=== PATIENT | male | born 1955 | race Caucasian/White ===

== ENCOUNTER 2017-12-12 09:15 | Emergency (ER) | payer OTHER ==
[~2017-12-12] VITALS: Ht 401.3 cm; Wt 59.0 kg
[2017-12-12] MEDS ORDERED: SODIUM CHLORIDE 0.9% 1,000 ML IV ONE (09:54)
[2017-12-12] MEDS ORDERED: BUPRTAB PO (09:56)
[2017-12-12] MEDS ORDERED: MEX150C PO (09:56)
[2017-12-12] MEDS ORDERED: SIMV-13 PO (09:56)
[2017-12-12] MEDS ORDERED: CARV25TA55 PO (09:56)
[2017-12-12] MEDS ORDERED: ASPI-231 PO (09:56)
[2017-12-12] MEDS ORDERED: POTA10TA51 PO (09:56)
[2017-12-12] MEDS ORDERED: LOSA25TA40 PO (09:56)
[2017-12-12] MEDS ORDERED: TRAM50TA2 PO (09:56)
[2017-12-12] MEDS ORDERED: PANT40TA2 PO (09:56)
[2017-12-12 10:23] LABS: Basophils # (auto) 0 uL; Basophils % (auto) 0.5 % (0.0-2.0); Eosinophils # (auto) 0.1 uL; Eosinophils % (auto) 0.8 % (0.0-7.0); Hematocrit 44.8 % (41.0-53.0); Hemoglobin 15.3 g/dL (13.5-17.5); Lymphocytes # (auto) 1.8 uL; Lymphocytes % (auto) 24.1 % (10.0-50.0); Mean Corpuscular Hemoglobin 31.7 pg (28.0-32.0); Mean Corpuscular Hgb Conc. 34.1 g/dL (32.0-36.0); Mean Corpuscular Volume 92.7 fL (80.0-100.0); Monocytes # (auto) 0.7 uL; Monocytes % (auto) 9.1 % (0.0-12.0); Neutrophils # (auto) 4.8 uL; Neutrophils % (auto) 65.5 % (37.0-80.0); Platelet Count (auto) 171 10^3/uL (140-450); Red Blood Cells 4.83 10^6/uL (4.5-5.90); Red Cell Distribution Width 12.8 % (11.8-14.3); White Blood Cell 7.4 10^3/uL (4.4-10.8)
[2017-12-12 10:39] LABS: Alanine Aminotransferase 57 U/L (16-61); Albumin 3.8 g/dL (3.4-5.0); Anion Gap 7 (5-15); Aspartate Aminotransferase 22 U/L (15-37); BUN/Creatinine Ratio 9.9; Blood Urea Nitrogen 10 mg/dL (7-18); Calcium 8.3 mg/dL (8.5-10.1); Carbon Dioxide 29 mmol/L (21-32); Chloride 106 mmol/L (98-107); GFR African American 96 mL/min; GFR Non-African American 80 mL/min; Glucose 90 mg/dL (74-106); Magnesium 2.3 mg/dL (1.6-2.6); Potassium 4.5 mmol/L (3.5-5.1); Sodium 142 mmol/L (136-145)
[2017-12-12 10:42] LABS: INR 1.05 (0.9-1.15); Partial Thromboplastin Time 29.3 sec (23.78-33.04); Prothrombin Time 11.2 sec (9.27-12.13)
[2017-12-12 10:44] LABS: Alkaline Phosphatase 100 U/L (45-117); Bilirubin, Total 0.4 mg/dL (0.2-1.0); Total Protein 6.9 g/dL (6.4-8.2)
[2017-12-12 11:58] LABS: Urine Bacteria NONE SEEN /hpf (None Seen); Urine Blood Negative /uL (Negative); Urine Specific Gravity 1.004 (1.001-1.035); Urine WBC 1 /hpf (0 - 3)
[2017-12-12 13:12] VITALS: BP 109/73
== END 2017-12-12 15:04 | disposition home or self-care (01) ==
LOC: ER 09:15
DX: R00.2 Palpitations (principal); I10 Essential (primary) hypertension; Z95.1 Presence of aortocoronary bypass graft; Z95.0 Presence of cardiac pacemaker; Z91.041 Radiographic dye allergy status; Z45.02 Encounter for adjustment and management of automatic implantable cardiac defibrillator
CPT/HCPCS: 36415; 71046; 80053; 81001; 83735; 84484; 85025; 85610; 85730; 93005; 94761

== ENCOUNTER 2017-12-13 17:45 | Inpatient (IN) | payer OTHER ==
[~2017-12-13] VITALS: Ht 175.3 cm; Wt 60.5 kg
[~2017-12-13 17:45] MED LIST: ASPI-231 PO; BUPRTAB PO; CARV25TA55 PO; LOSA25TA40 PO; MEX150C PO; PANT40TA2 PO; POTA10TA51 PO; SIMV-13 PO; TRAM50TA2 PO
[2017-12-13] MEDS ORDERED: AMIODARONE HCL 150 MG in D5W 5% 100 ML IV ONE (18:00)
[2017-12-13] MEDS ORDERED: AMIODARONE HCL 900 MG in DEXTROSE 500 ML IV SCH (18:08)
[2017-12-13 19:51] LABS: Basophils # (auto) 0 uL; Basophils % (auto) 0.3 % (0.0-2.0); Eosinophils # (auto) 0.1 uL; Eosinophils % (auto) 0.9 % (0.0-7.0); Hematocrit 46.8 % (41.0-53.0); Hemoglobin 16.3 g/dL (13.5-17.5); Lymphocytes % (auto) 16.9 % (10.0-50.0); Mean Corpuscular Hemoglobin 32.8 pg (28.0-32.0); Mean Corpuscular Hgb Conc. 34.9 g/dL (32.0-36.0); Mean Corpuscular Volume 93.9 fL (80.0-100.0); Monocytes % (auto) 8.1 % (0.0-12.0); Neutrophils # (auto) 8.7 uL; Neutrophils % (auto) 73.8 % (37.0-80.0); Platelet Count (auto) 185 10^3/uL (140-450); Red Blood Cells 4.99 10^6/uL (4.5-5.90); Red Cell Distribution Width 13.2 % (11.8-14.3); White Blood Cell 11.8 10^3/uL (4.4-10.8)
[2017-12-13 20:05] LABS: INR 1.06 (0.9-1.15); Partial Thromboplastin Time 29.9 sec (23.78-33.04); Prothrombin Time 11.3 sec (9.27-12.13)
[2017-12-13 20:10] LABS: Alanine Aminotransferase 55 U/L (16-61); Albumin 4.2 g/dL (3.4-5.0); Alkaline Phosphatase 113 U/L (45-117); Anion Gap 2 (5-15); Aspartate Aminotransferase 19 U/L (15-37); BUN/Creatinine Ratio 9.4; Bilirubin, Total 0.5 mg/dL (0.2-1.0); Blood Urea Nitrogen 11 mg/dL (7-18); Calcium 8.6 mg/dL (8.5-10.1); Carbon Dioxide 29 mmol/L (21-32); Chloride 107 mmol/L (98-107); GFR African American 81 mL/min; GFR Non-African American 67 mL/min; Glucose 95 mg/dL (74-106); Magnesium 2.4 mg/dL (1.6-2.6); Potassium 4.1 mmol/L (3.5-5.1); Sodium 138 mmol/L (136-145); Total Protein 7.7 g/dL (6.4-8.2)
[2017-12-13] MEDS ORDERED: DOCUSATE SOD 100 MG CAP PO PRN (21:30)
[2017-12-13] MEDS ORDERED: TEMAZEPAM 15 MG CAP PO PRN (21:30)
[2017-12-13] MEDS ORDERED: ACETAMINOPHEN 325 MG TAB PO PRN (21:30)
[2017-12-13] MEDS ORDERED: MORPHINE SULF INJ 2 MG/ML SYRINGE 1ML IV PRN (21:30)
[2017-12-13] MEDS ORDERED: HYDROcodone-ACET 5/325MG TAB PO PRN (21:30)
[2017-12-13] MEDS ORDERED: ONDANSETRON HCL 4 MG/2 ML VIAL IV PRN (21:30)
[2017-12-13] MEDS ORDERED: NITROGLYCERIN 0.4 MG SL TAB SL PRN (21:30)
[2017-12-13] MEDS: ATORVASTATIN 20 MG TAB PO SCH (22:06)
[2017-12-13] MEDS: ENOXAPARIN SOD 40 MG/0.4 ML SYRINGE SC SCH (22:06)
[2017-12-13] MEDS: FAMOTIDINE 20 MG TAB PO SCH (22:06)
[2017-12-14 06:56] LABS: Basophils # (auto) 0 uL; Basophils % (auto) 0.4 % (0.0-2.0); Eosinophils # (auto) 0 uL; Eosinophils % (auto) 0.6 % (0.0-7.0); Hematocrit 44.8 % (41.0-53.0); Hemoglobin 15.3 g/dL (13.5-17.5); Lymphocytes # (auto) 2.1 uL; Lymphocytes % (auto) 28.5 % (10.0-50.0); Mean Corpuscular Hgb Conc. 34.1 g/dL (32.0-36.0); Mean Corpuscular Volume 93.8 fL (80.0-100.0); Monocytes # (auto) 0.6 uL; Monocytes % (auto) 7.9 % (0.0-12.0); Neutrophils # (auto) 4.7 uL; Neutrophils % (auto) 62.6 % (37.0-80.0); Nucleated Red Blood Cells % 0.1 %; Platelet Count (auto) 165 10^3/uL (140-450); Red Blood Cells 4.78 10^6/uL (4.5-5.90); Red Cell Distribution Width 13.2 % (11.8-14.3); White Blood Cell 7.5 10^3/uL (4.4-10.8)
[2017-12-14 07:14] LABS: Potassium 3.9 mmol/L (3.5-5.1)
[2017-12-14 07:19] LABS: Albumin 3.8 g/dL (3.4-5.0); BUN/Creatinine Ratio 9.4; Calcium 8.3 mg/dL (8.5-10.1)
[2017-12-14 07:29] LABS: Bilirubin, Total 0.6 mg/dL (0.2-1.0); Total Protein 6.6 g/dL (6.4-8.2)
[2017-12-14] MEDS: FAMOTIDINE 20 MG TAB PO SCH ×2 (09:47→21:55)
[2017-12-14] MEDS: LOSARTAN POTASSIUM 25 MG TAB PO SCH (09:47)
[2017-12-14] MEDS: ENOXAPARIN SOD 40 MG/0.4 ML SYRINGE SC SCH (09:47)
[2017-12-14] MEDS: ASPirin 81 mg TAB PO SCH (09:47)
[2017-12-14] MEDS ORDERED: LIDOCAINE 2%HCL (LOCAL ANESTH.) INJ 20ML MDV ONE (11:50)
[2017-12-14] MEDS ORDERED: IODIXANOL 320MG/ML 100ML BTL IV ONE ×2 (11:50→12:54)
[2017-12-14] MEDS ORDERED: methylPREDNISolone SOD SUCC 125 MG/2 ML VL ONE (12:32)
[2017-12-14] MEDS ORDERED: ANGIOMAX 250 MG VIAL IV ONE (12:32)
[2017-12-14] MEDS ORDERED: fentaNYL CITRATE 100 MCG/2 ML VL ONE (12:33)
[2017-12-14] MEDS ORDERED: diphenhdrAMINE HCL 50 MG/1 ML VL ONE (12:33)
[2017-12-14] MEDS ORDERED: SODIUM CHL 0.9% 0 ML ONE (12:33)
[2017-12-14] MEDS ORDERED: EPINEPHrine HCL 1 MG/10 ML SYRG ONE (12:33)
[2017-12-14] MEDS ORDERED: ATROPINE SULF 1 MG/10ml SYR ONE (12:33)
[2017-12-14] MEDS ORDERED: MIDAZOLAM HCL 1MG/1ML-2 ML VIAL ONE (12:33)
[2017-12-14] MEDS ORDERED: FAMOTIDINE (10MG/ML) 2ML VL IV ONE ×2 (12:45→12:49)
[2017-12-14] MEDS ORDERED: AMIODARONE HCL 900 MG in DEXTROSE 500 ML IV SCH ×2 (14:30→16:15)
[2017-12-14] MEDS ORDERED: AMIODARONE HCL 200 MG TAB PO ONE (16:00)
[2017-12-14 19:51] VITALS: BP 112/66
[2017-12-14 20:54] VITALS: BP 133/79
[2017-12-14] MEDS: ATORVASTATIN 20 MG TAB PO SCH (21:55)
[2017-12-14] MEDS: AMIODARONE HCL 200 MG TAB PO SCH (22:00)
[2017-12-14] MEDS: MEXILETINE HYDROCHLORIDE 150 MG CAP PO SCH (22:09)
[2017-12-15] VITALS: BP 96/55
[2017-12-15] MEDS: MEXILETINE HYDROCHLORIDE 150 MG CAP PO SCH ×2 (06:21→15:22)
[2017-12-15 08:00] VITALS: BP 88/43
[2017-12-15] MEDS: ASPirin 81 mg TAB PO SCH (09:55)
[2017-12-15] MEDS: LOSARTAN POTASSIUM 25 MG TAB PO SCH (09:58)
[2017-12-15] MEDS: AMIODARONE HCL 200 MG TAB PO SCH (10:07)
[2017-12-15] MEDS: FAMOTIDINE 20 MG TAB PO SCH (10:08)
[2017-12-15 12:00] VITALS: BP 110/42
[2017-12-15] MEDS ORDERED: AMI200T PO (15:42)
[2017-12-15 16:00] VITALS: BP 113/56
[2017-12-15 16:23] VITALS: BP 113/56
[2017-12-15 17:05] VITALS: BP 113/56
[2017-12-15] MEDS ORDERED: AMIODARONE HCL 200 MG TAB PO SCH (22:00)
== END 2017-12-15 17:55 | disposition home or self-care (01) | DRG 287 ==
LOC: ER 17:47 → TELE 17:48 → DOU IN ICU 12-14 18:19
PROVIDERS: ADMIT Nurse Practitioner; ATTEND Hospitalist
PROC: B2131ZZ Fluoroscopy of Multiple Coronary Artery Bypass Grafts using Low Osmolar Contrast (ICD-10-PCS; principal; 2017-12-14)
PROC: B2111ZZ Fluoroscopy of Multiple Coronary Arteries using Low Osmolar Contrast (ICD-10-PCS; 2017-12-14)
PROC: 4A023N7 Measurement of Cardiac Sampling and Pressure, Left Heart, Percutaneous Approach (ICD-10-PCS; 2017-12-14)
PROC: B41F1ZZ Fluoroscopy of Right Lower Extremity Arteries using Low Osmolar Contrast (ICD-10-PCS; 2017-12-14)
PROC: B2181ZZ Fluoroscopy of Left Internal Mammary Bypass Graft using Low Osmolar Contrast (ICD-10-PCS; 2017-12-14)
DX: T82.198A Other mechanical complication of other cardiac electronic device, initial encounter (principal); I47.2 Ventricular tachycardia; I25.810 Atherosclerosis of coronary artery bypass graft(s) without angina pectoris; Z45.02 Encounter for adjustment and management of automatic implantable cardiac defibrillator; I25.5 Ischemic cardiomyopathy; F12.90 Cannabis use, unspecified, uncomplicated; F17.200 Nicotine dependence, unspecified, uncomplicated; I11.0 Hypertensive heart disease with heart failure; I25.2 Old myocardial infarction; I50.9 Heart failure, unspecified; I25.82 Chronic total occlusion of coronary artery; Z82.49 Family history of ischemic heart disease and other diseases of the circulatory system; Z95.1 Presence of aortocoronary bypass graft; Z95.810 Presence of automatic (implantable) cardiac defibrillator; Z91.041 Radiographic dye allergy status
CPT/HCPCS: 36415; 71045; 75710; 80053; 83735; 83880; 84484; 85025; 85610; 85730; 87081; 93459; 94761; 96372; 96374; 99152; 99291; A6257; J2250; J3490; J7060; Q9967

== ENCOUNTER 2017-12-19 14:51 | Emergency (ER) | payer OTHER ==
[~2017-12-19] VITALS: Ht 172.7 cm; Wt 59.0 kg
[~2017-12-19 14:51] MED LIST changes: +AMI200T PO
[2017-12-19 15:40] LABS: Basophils # (auto) 0.1 uL; Basophils % (auto) 0.5 % (0.0-2.0); Eosinophils # (auto) 0.1 uL; Eosinophils % (auto) 0.9 % (0.0-7.0); Hematocrit 42.6 % (41.0-53.0); Hemoglobin 14.9 g/dL (13.5-17.5); Lymphocytes # (auto) 2.6 uL; Mean Corpuscular Hemoglobin 32.2 pg (28.0-32.0); Mean Corpuscular Hgb Conc. 34.9 g/dL (32.0-36.0); Mean Corpuscular Volume 92.3 fL (80.0-100.0); Monocytes % (auto) 9.8 % (0.0-12.0); Neutrophils # (auto) 6.3 uL; Neutrophils % (auto) 62.8 % (37.0-80.0); Platelet Count (auto) 176 10^3/uL (140-450); Red Blood Cells 4.61 10^6/uL (4.5-5.90); Red Cell Distribution Width 13.1 % (11.8-14.3)
[2017-12-19 15:59] LABS: Alanine Aminotransferase 49 U/L (16-61); Albumin 3.9 g/dL (3.4-5.0); Alkaline Phosphatase 102 U/L (45-117); Anion Gap 9 (5-15); Aspartate Aminotransferase 30 U/L (15-37); BUN/Creatinine Ratio 10.4; Bilirubin, Total 0.5 mg/dL (0.2-1.0); Blood Urea Nitrogen 11 mg/dL (7-18); Calcium 8.3 mg/dL (8.5-10.1); Carbon Dioxide 25 mmol/L (21-32); Chloride 102 mmol/L (98-107); GFR African American 91 mL/min; GFR Non-African American 75 mL/min; Glucose 100 mg/dL (74-106); Magnesium 2.4 mg/dL (1.6-2.6); Potassium 3.8 mmol/L (3.5-5.1); Sodium 136 mmol/L (136-145); Total Protein 6.9 g/dL (6.4-8.2)
[2017-12-19 18:11] LABS: Urine WBC None Seen /hpf (0 - 3)
[2017-12-19] MEDS ORDERED: SODIUM CHLORIDE 0.9% 500 ML IV ONE (18:30)
[2017-12-19 18:56] LABS: Urine Bacteria NONE SEEN /hpf (None Seen); Urine Blood Negative /uL (Negative); Urine Specific Gravity 1.002 (1.001-1.035)
[2017-12-19 19:25] VITALS: BP 115/62
== END 2017-12-19 21:17 | disposition home or self-care (01) ==
LOC: ER 14:53
DX: F41.9 Anxiety disorder, unspecified (principal); R51 Headache; I11.0 Hypertensive heart disease with heart failure; I50.9 Heart failure, unspecified; I25.2 Old myocardial infarction; Z95.1 Presence of aortocoronary bypass graft
CPT/HCPCS: 36415; 71046; 80053; 81001; 83735; 84484; 85025; 93005; 99285; J7030

== ENCOUNTER 2022-01-30 17:42 | Emergency (ER) | payer OTHER ==
[~2022-01-30] VITALS: Ht 175.3 cm; Wt 81.8 kg
[~2022-01-30 17:42] MED LIST changes: -AMI200T PO; +AMIO200T4 PO; -ASPI-231 PO; +ASPI1TAB20 PO; +LOSA25TA38 PO; -LOSA25TA40 PO
[2022-01-30] MEDS ORDERED: HYDROmorphone HCL 2 MG/ML VL/or syr IV ONE ×2 (18:15→20:30)
[2022-01-30] MEDS ORDERED: ONDANSETRON HCL 4 MG/2 ML VIAL IV ONE (18:15)
[2022-01-30 19:13] LABS: Basophils # (auto) 0 10 ^3/uL (0-0.2); Basophils % (auto) 0.3 % (0.0-2.0); Eosinophils # (auto) 0 10 ^3/uL (0-0.8); Eosinophils % (auto) 0.1 % (0.0-7.0); Hematocrit 42.2 % (41.0-53.0); Hemoglobin 14.7 g/dL (13.5-17.5); Lymphocytes % (auto) 6.1 % (10.0-50.0); Mean Corpuscular Hgb Conc. 34.8 g/dL (32.0-36.0); Mean Corpuscular Volume 94.9 fL (80.0-100.0); Monocytes % (auto) 5.7 % (0.0-12.0); Neutrophils # (auto) 14.9 10 ^3/uL (1.6-8.6); Neutrophils % (auto) 87.8 % (37.0-80.0); Red Blood Cells 4.45 10^6/uL (4.5-5.90); Red Cell Distribution Width 13.1 % (11.8-14.3); White Blood Cell 16.9 10^3/uL (4.4-10.8)
[2022-01-30 19:25] LABS: Anion Gap 6 (5-15); Blood Alcohol < 3.0 mg/dL (0-5); Blood Urea Nitrogen 15 mg/dL (7-18); Calcium 9.1 mg/dL (8.5-10.1); Carbon Dioxide 27 mmol/L (21-32); Chloride 107 mmol/L (98-107); Glucose 127 mg/dL (74-106); Lipase 133 U/L (73-393); Potassium 4.3 mmol/L (3.5-5.1); Sodium 140 mmol/L (136-145)
[2022-01-30 19:27] LABS: Alanine Aminotransferase 31 U/L (16-61); Alkaline Phosphatase 87 U/L (45-117); Aspartate Aminotransferase 21 U/L (15-37); BUN/Creatinine Ratio 13.8; Bilirubin, Total 0.8 mg/dL (0.2-1.0); GFR African American 87 mL/min; GFR Non-African American 72 mL/min; Total Protein 6.8 g/dL (6.4-8.2)
[2022-01-31] MEDS ORDERED: NAP500T PO ×2 (00:05→00:42)
[2022-01-31] MEDS ORDERED: HYDROmorphone HCL 2 MG/ML VL/or syr IV ONE (00:30)
[2022-01-31 00:35] VITALS: BP 115/74
[2022-01-31] MEDS ORDERED: TETANUS-DIPTH-ACEL PERTUSSIS 0.5ML SYR Tdap IM ONE (01:15)
== END 2022-01-31 01:23 | disposition home or self-care (01) ==
LOC: ER 17:42
DX: S42.001A Fracture of unspecified part of right clavicle, initial encounter for closed fracture (principal); I11.0 Hypertensive heart disease with heart failure; I50.9 Heart failure, unspecified; I25.2 Old myocardial infarction; F12.10 Cannabis abuse, uncomplicated; W22.8XXA Striking against or struck by other objects, initial encounter; Y93.89 Activity, other specified; Y92.89 Other specified places as the place of occurrence of the external cause; Y99.8 Other external cause status
CPT/HCPCS: 36415; 70450; 71045; 71250; 72125; 74176; 80053; 80320; 83690; 83880; 84484; 85025; 90471; 90715; 93005; 96374; 96375; 96376; 99285; J1170; J2405

== ENCOUNTER 2022-08-17 01:14 | Inpatient (IN) | payer OTHER ==
[~2022-08-17] VITALS: Ht 175.3 cm; Wt 82.7 kg
[~2022-08-17 01:14] MED LIST changes: +NAP500T PO
[2022-08-17 01:53] LABS: Basophils # (auto) 0 10 ^3/uL (0-0.2); Basophils % (auto) 0.3 % (0.0-2.0); Eosinophils # (auto) 0 10 ^3/uL (0-0.8); Hematocrit 47.6 % (41.0-53.0); Hemoglobin 16.3 g/dL (13.5-17.5); Lymphocytes % (auto) 6.3 % (10.0-50.0); Mean Corpuscular Hemoglobin 33.3 pg (28.0-32.0); Mean Corpuscular Hgb Conc. 34.2 g/dL (32.0-36.0); Mean Corpuscular Volume 97.4 fL (80.0-100.0); Monocytes # (auto) 0.8 10 ^3/uL (0-1.3); Monocytes % (auto) 5.4 % (0.0-12.0); Neutrophils # (auto) 13.3 10 ^3/uL (1.6-8.6); Red Blood Cells 4.89 10^6/uL (4.5-5.90); Red Cell Distribution Width 13.5 % (11.8-14.3); White Blood Cell 15.2 10^3/uL (4.4-10.8)
[2022-08-17 02:08] LABS: INR 1.02 (0.9-1.15); Partial Thromboplastin Time 30.5 sec (24.6-33.4)
[2022-08-17 02:14] LABS: BUN/Creatinine Ratio 11.9 (10.0-20.0); Calcium 8.8 mg/dL (8.5-10.1); Potassium 4.1 mmol/L (3.5-5.1)
[2022-08-17 02:17] LABS: Bilirubin, Total 0.9 mg/dL (0.2-1.0); Total Protein 7.6 g/dL (6.4-8.2)
[2022-08-17] MEDS ORDERED: ONDANSETRON HCL 4 MG/2 ML VIAL IV PRN (03:45)
[2022-08-17] MEDS: MORPHINE SULFATE 4 MG/ML SYR/VIAL IV PRN ×3 (03:51→13:13)
[2022-08-17] MEDS ORDERED: MORPHINE SULFATE 4 MG/ML SYR/VIAL IV ONE (05:30)
[2022-08-17] MEDS ORDERED: MORPHINE SULFATE INJ 2 MG/ml SYRG IV PRN (07:15)
[2022-08-17] MEDS ORDERED: ACETAMINOPHEN 325 MG TAB PO PRN (07:15)
[2022-08-17] MEDS ORDERED: NITROGLYCERIN 0.4 MG SL TAB SL PRN (07:15)
[2022-08-17] MEDS: ONDANSETRON HCL 4 MG/2 ML VIAL IV PRN ×2 (08:24→17:03)
[2022-08-17] MEDS ORDERED: diphenhdrAMINE HCL 50 MG/1 ML VL ONE (09:32)
[2022-08-17] MEDS ORDERED: fentaNYL CITRATE 100 MCG/2 ML VL ONE (09:32)
[2022-08-17] MEDS ORDERED: MIDAZOLAM HCL 2MG/2ML 2ml VIAL (1mg/ml) ONE (09:32)
[2022-08-17] MEDS: FUROSEMIDE 20 MG TAB PO SCH (10:27)
[2022-08-17] MEDS: AMIODARONE HCL 200 MG TAB PO SCH ×2 (10:27→20:54)
[2022-08-17] MEDS: CARVEDILOL 12.5 MG TAB PO SCH ×2 (10:28→20:54)
[2022-08-17] MEDS: LOSARTAN POTASSIUM 25 MG TAB PO SCH (10:29)
[2022-08-17] MEDS: ENOXAPARIN SOD 40 MG/0.4 ML SYRINGE SC SCH (10:29)
[2022-08-17] MEDS: PANTOPRAZOLE 40 MG TAB PO SCH (10:29)
[2022-08-17] MEDS: ASPirin 81 mg TAB PO SCH (10:31)
[2022-08-17 11:45] LABS: Urine Bacteria NONE SEEN /hpf (None Seen); Urine Blood Negative /uL (Negative); Urine Mucus FEW (None Seen); Urine Specific Gravity 1.028 (1.001-1.035); Urine WBC 1 /hpf (0 - 3)
[2022-08-17 15:45] VITALS: BP 138/75
[2022-08-17 16:00] VITALS: BP 132/80
[2022-08-17] MEDS: HYDROmorphone HCL 2 MG/ML VL/or syr IV PRN ×2 (17:02→20:55)
[2022-08-17 22:00] VITALS: BP 134/82
[2022-08-17] MEDS ORDERED: ATORVASTATIN 20 MG TAB PO SCH (22:00)
[2022-08-18 05:00] VITALS: BP 107/50
[2022-08-18] MEDS: HYDROmorphone HCL 2 MG/ML VL/or syr IV PRN (05:28)
[2022-08-18 06:30] LABS: BUN/Creatinine Ratio 10.3 (10.0-20.0); Calcium 8.7 mg/dL (8.5-10.1); Potassium 4.1 mmol/L (3.5-5.1)
[2022-08-18 09:00] VITALS: BP 99/45
[2022-08-18] MEDS: FUROSEMIDE 20 MG TAB PO SCH (10:42)
[2022-08-18] MEDS: ASPirin 81 mg TAB PO SCH (10:42)
[2022-08-18] MEDS: CARVEDILOL 12.5 MG TAB PO SCH (10:43)
[2022-08-18] MEDS: PANTOPRAZOLE 40 MG TAB PO SCH (10:43)
[2022-08-18] MEDS: LOSARTAN POTASSIUM 25 MG TAB PO SCH (10:44)
[2022-08-18] MEDS: ENOXAPARIN SOD 40 MG/0.4 ML SYRINGE SC SCH (10:44)
[2022-08-18] MEDS: AMIODARONE HCL 200 MG TAB PO SCH (10:44)
[2022-08-18 12:20] LABS: Basophils # (auto) 0.1 10 ^3/uL (0-0.2); Basophils % (auto) 0.7 % (0.0-2.0); Eosinophils # (auto) 0.1 10 ^3/uL (0-0.8); Eosinophils % (auto) 0.4 % (0.0-7.0); Hematocrit 45.3 % (41.0-53.0); Hemoglobin 15.2 g/dL (13.5-17.5); Lymphocytes # (auto) 1.2 10 ^3/uL (0.4-5.4); Lymphocytes % (auto) 9.5 % (10.0-50.0); Mean Corpuscular Hemoglobin 33.2 pg (28.0-32.0); Mean Corpuscular Hgb Conc. 33.6 g/dL (32.0-36.0); Mean Corpuscular Volume 98.9 fL (80.0-100.0); Monocytes # (auto) 1.3 10 ^3/uL (0-1.3); Monocytes % (auto) 9.7 % (0.0-12.0); Neutrophils # (auto) 10.3 10 ^3/uL (1.6-8.6); Neutrophils % (auto) 79.7 % (37.0-80.0); Red Blood Cells 4.58 10^6/uL (4.5-5.90); White Blood Cell 12.9 10^3/uL (4.4-10.8)
[2022-08-18 13:00] VITALS: BP 124/63
[2022-08-18 16:06] VITALS: BP 124/63
[2022-08-18 17:00] VITALS: BP 123/68
== END 2022-08-18 18:00 | disposition home or self-care (01) | DRG 313 ==
LOC: ER 01:14 → TELE 07:07 → TELE-EAST 15:02
PROVIDERS: ADMIT Nurse Practitioner; ATTEND Internal Medicine
DX: R07.9 Chest pain, unspecified (principal); I42.0 Dilated cardiomyopathy; I25.110 Atherosclerotic heart disease of native coronary artery with unstable angina pectoris; I50.42 Chronic combined systolic (congestive) and diastolic (congestive) heart failure; I11.0 Hypertensive heart disease with heart failure; D72.829 Elevated white blood cell count, unspecified; E78.5 Hyperlipidemia, unspecified; F17.210 Nicotine dependence, cigarettes, uncomplicated; I25.5 Ischemic cardiomyopathy; Z82.49 Family history of ischemic heart disease and other diseases of the circulatory system; Z95.1 Presence of aortocoronary bypass graft; Z95.810 Presence of automatic (implantable) cardiac defibrillator; Z91.041 Radiographic dye allergy status
CPT/HCPCS: 36415; 71045; 80048; 80053; 81001; 83735; 83880; 84484; 85025; 85610; 85730; 93005; 93306; 96374; 96375; G0378; J2250; J2405